=== PATIENT | male | born 2000 | race Caucasian/White ===

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

== ENCOUNTER → 2018-03-24 11:56 | Outpatient (CLI) | payer OTHER, SELFPAY ==
[2018-03-24 15:22] LABS: Absolute Lymphocyte Count 1.55 X10^3/ul (0.83-4.51); Absolute Neutrophil Count 2.9 X10^3/uL (2.0-7.7); Basophil# 0.05 X10^3/uL; Basophil% 0.9 % (0-1); Eosinophil# 0.11 X10^3/uL; Hematocrit 43.8 % (40-54); Hemoglobin 14.3 g/dl (13.0-16.5); Lymphocyte # 1.55 X10^3/ul (4.0); Lymphocyte % 28.9 % (19-41); Mean Corp Hgb Conc 32.6 g/gl (32-36); Mean Corpuscular Hgb 29.1 pg (27.0-32.0); Mean Platelet Vol. 9.1 fl (6.2-12.0); Monocyte# 0.72 X10^3/uL; Monocyte% 13.4 % (0-10); Neutrophil # 2.94 X10^3/uL (2.7-7.7); Neutrophil % 54.8 % (47-70); Platelet Count 282 K/mm3 (150-450); RBC Distribution Width CV 13.1 % (11.6-14.6); RBC Distribution Width SD 42.8 fl (35.1-43.9); Red Blood Count 4.92 M/mm3 (4.6-6.2); White Blood Count 5.4 K/mm3 (4.4-11.0)
[2018-03-24 15:23] LABS: POSITIVE COUNT NO; POSITIVE DIFFERENTIAL NO; POSITIVE MORPHOLOGY NO
[2018-03-24 15:40] LABS: Ferritin 9 ng/mL (26-388); Iron 135 ug/dL (65-175); Iron Binding Capacity,Total 357 ug/dL (250-450)
--- OUTSIDE RECORDS SUMMARY | 2018-06-26 02:10 | XMS RPT_ITS ---
:2000 Author Organization OHIP Care Team Providers Name Role Phone AGUILAR DEL TORO (FEL) Attending Unavailable SIMA ZAVALA Referring Unavailable Cameron, Iraj Attending Unavailable Cameron, Iraj Primary Care Unavailable Cameron, Iraj Attending Unavailable Barnes, Iraj Primary Care Unavailable Barnes, Iraj Attending Unavailable Iraj Barnes Primary Care Unavailable Cameron, Iraj Attending Unavailable BarnesIraj gavin Referring Unavailable Barnes, Iraj Primary Care Unavailable Barnes, Iraj Attending Unavailable Barnes, Iraj Primary Care Unavailable PROBLEMS PROBLEMS DATE TYPE CONDITION / CODE ATTENDING STATUS SOURCE 11/07/2017 Unknown D64.9 - Anemia, Iraj Barnes Active [facility] unspecified / Community D64.9(ICD-10) Hospital Repository 05/16/2017 Unknown R53.83 - Other Iraj Barnes Active [facility] fatigue / Community R53.83(ICD-10) Hospital Repository PROCEDURES PROCEDURES No Procedure Records FoundRESULTS RESULTS CBC W/DIFF, AUTOMATED Collected: 03/24/2018 Status: F Source: [place] 11:58 AM [facility] REPOSITORY TYPE CODE TESTS RESULT OUT OF RANGE REFERENCE UNITS LAB L100.1000 4.4-11.0 K/mm3 Normal WBC 5.4 LAB L100.1200 4.6-6.2 M/mm3 Normal RBC 4.92 LAB L100.1300 13.0-16.5 g/dl Normal HGB 14.3 LAB L100.1400 40-54 % Normal HCT 43.8 LAB L100.1500 80-94 fL Normal MCV 89.0 LAB L100.1600 27.0-32.0 pg Normal MCH 29.1 LAB L100.1700 32-36 g/gl Normal MCHC 32.6 LAB L100.1810 11.6-14.6 % Normal RDW CV 13.1 LAB L100.1820 35.1-43.9 fl Normal RDW SD 42.8 LAB L100.1900 150-450 K/mm3 Normal PLT 282 LAB L100.2000 6.2-12.0 fl Normal MPV 9.1 LAB L100.2100 47-70 % Normal NEUT% 54.8 LAB L100.2200 19-41 % Normal LY% 28.9 LAB L100.2300 0-10 % High MONO% 13.4 LAB L100.2400 0-5 % Normal EO% 2.0 LAB L100.2500 0-1 % Normal BASO% 0.9 LAB L100.2550 0.0-0.9 % Normal IM GRAN % 0.000 Result Comment: IG% - Immature Granulocytes (promyelocytes, myelocytes and metamyelocytes) > 1% indicates that a LEFT SHIFT is Present. LAB L100.2620 2.0-7.7 X10 3/uL Normal Absolute Neut 2.9 LAB L100.2720 0.83-4.51 X10 3/ul Normal Absolute Lymph 1.55 Performed By: #### L100.0100 #### [facility] [address] [place], [place], [address] IRON BINDING Collected: 03/24/2018 Status: F Source: [facility] 11[place] [facility] [place] TYPE CODE TESTS RESULT OUT OF RANGE REFERENCE UNITS LAB L503.6075 250-450 ug/dL Normal TIBC 357 Performed By: #### L503.6075, L503.6150, L503.6550 #### [facility] [address] [place], [address] IRON Collected: 03/24/2018 Status: F Source: [place] 11:58 [place] [facility] [place] TYPE CODE TESTS RESULT OUT OF RANGE REFERENCE UNITS LAB L503.6150 65-175 ug/dL Normal IRON 135 Performed By: #### L503.6075, L503.6150, L503.6550 #### [facility] [address] [place], [place], [address] FERRITIN Collected: 03/24/2018 Status: F Source: [place] 11:58 AM [facility] TYPE CODE TESTS RESULT OUT OF REFERENCE UNITS RANGE LAB L503.6550 26-388 ng/mL Low FERRITIN 9 Performed By: #### L503.6075, L503.6150, L503.6550 #### [facility] [address] [place], [place], [address] CBC W/DIFF, AUTOMATED Collected: 11/07/2017 Status: F Source: [place] 3:28 PM [facility] TYPE CODE TESTS RESULT OUT OF RANGE REFERENCE UNITS LAB L100.1000 4.4-11.0 K/mm3 Normal WBC 6.5 LAB L100.1200 4.6-6.2 M/mm3 Normal RBC 4.88 LAB L100.1300 13.0-16.5 g/dl Normal HGB 14.4 LAB L100.1400 40-54 % Normal HCT 43.6 LAB L100.1500 80-94 fL Normal MCV 89.3 LAB L100.1600 27.0-32.0 pg Normal MCH 29.5 LAB L100.1700 32-36 g/gl Normal MCHC 33.0 LAB L100.1810 11.6-14.6 % Normal RDW CV 12.7 LAB L100.1820 35.1-43.9 fl Normal RDW SD 40.9 LAB L100.1900 150-450 K/mm3 Normal PLT 237 LAB L100.2000 6.2-12.0 fl Normal MPV 9.2 LAB L100.2100 47-70 % Normal NEUT% 55.6 LAB L100.2200 19-41 % Normal LY% 29.4 LAB L100.2300 0-10 % High MONO% 11.6 LAB L100.2400 0-5 % Normal EO% 2.9 LAB L100.2500 0-1 % Normal BASO% 0.5 LAB L100.2550 0.0-0.9 % Normal IM GRAN % 0.000 Result Comment: IG% - Immature Granulocytes (promyelocytes, myelocytes and metamyelocytes) > 1% indicates that a LEFT SHIFT is Present. LAB L100.2620 2.0-7.7 X10 3/uL Normal Absolute Neut 3.6 LAB L100.2720 0.83-4.51 X10 3/ul Normal Absolute Lymph 1.92 Performed By: #### L100.0100 #### [facility] [address] [place], [address] IRON+IRON BINDING Collected: 11/07/2017 Status: F Source: [facility] 3:28 PM [facility] TYPE CODE TESTS RESULT OUT OF RANGE REFERENCE UNITS LAB L503.6075 250-450 ug/dL TIBC Normal 318 LAB L503.6150 65-175 ug/dL IRON Normal 127 LAB L503.6250 15.0-55.0 % IRON Normal SATURATION 39.9 Performed By: #### L503.6030, L503.6550 #### [facility] [address] [place], [address] FERRITIN Collected: 11/07/2017 Status: F Source: [place] 3:28 [facility] REPOSITORY TYPE CODE TESTS RESULT OUT OF REFERENCE UNITS RANGE LAB L503.6550 26-388 ng/mL Low FERRITIN 18 Performed By: #### L503.6030, L503.6550 #### [facility] [place], [address] PROGRESS Observed: 08/08/2017 Status: COMPLETED Source: [place] 1:32 PM [facility] REPOSITORY O ID: [id number] Author: Aguilar Del Toro (Ollie) Service: (none) Author Type: Resident Type: Progress Notes Filed: 08/13/2017 12:39 PM Note Text: CHILD AND ADOLESCENT PSYCHIATRY FOLLOW-UP VISIT CC STAFF: TEACHING PHYSICIAN NOTE OF PERSONAL INVOLVEMENT IN CARE I have met with this patient and guardian.The symptoms and needs of the patient were reviewed with the patient, guardian, and fellow. I have reviewed the progress note obtained and documented by the fellow and I personally was present and participated in the villa components. I have discussed the case and management of the patient's care with the fellow. The following comments revise or confirm relevant villa components of the fellow's note. IMPRESSION: This is a 17 y/o M with hx of MDD, currently in remission, stable on SSRI. He just finished his first year of college. His PCP recommended and he already decreased is Prozac to 40 mg every other day. He would like to stop his medication. We discussed decreasing to 20 mg daily x 1 month, then d/c. Since Dr. Del Toro is completing fellowship, Jaden would have to transfer to another resident in our clinic. He expressed that he would be interested in his PCP managing his care, and his PCP agreed. In meeting with the patient and guardian I have discussed; the patient's symptoms, reviewed history, obtained further collateral, discussed diagnosis, reviewed the family's involvement, reviewed the patients risk factors for self harm and harm to others, reviewed the patients environment, ways to modify the patient social environment, what actions the guardian(S) can take to help ensure a safe environment, medication changes, the patient's motivation for treatment, the need for medication, risks/benefits/alternatives to medical treatment, comorbidites and their impact on treatment, our plan of action, benchmarks for improvement, and overall goals of treatment. PLAN: The plan and recommendations are noted below in the fellow's note. The plan was developed with my direct input and supervision. Content in the note with which I do not agree has a strike through, and additions are in italics. Melvina Bettencourt MD Beeper Number: [id number] Authenticated by responsible provider. ASSESSMENT AND PLAN Jaden Muro is 17 year old male who presents for follow- up visit. At the last visit, on 05/22/2017, He was instructed to continue Prozac 40 mg daily. Today, we will plan to decrease Prozac to 20 mg daily for a month then discontinue it. We discussed following up with his primary care vs adult psychiatry here, he prefers seeing his pcp. Spoke to Dr Blas, pcp and he is agreeable to have Jaden follow up with him. Safety: - He has a chronic Low risk of harm to self/others. I reviewed safety and emergent precautions. - Were there any acute concerns for safety during today's evaluation? No Diagnoses: Problem List Items Addressed This Visit Psychiatry Major depressive disorder without psychotic features - Primary Overview Assessment: Reports remission of depression symptoms and suicidal thoughts since November, functioning well in college. C/o feeling tired and sleeping too much PLAN: - Decrease Prozac to 20 mg daily for 1 month, then discontinue - Patient to call and update me - Will contact PCP to discuss transfer of care as pt wants to follow up there, pt signed JAKE - Has Pulse oximetry to be done overnight next week, followed by a sleep study in a few weeks Coordination of care: - Will coordinate with outside providers. - Release of information signed today? Yes, signed release for his pcp Follow-up: - To follow up with pcp Dr Blas. Family was asked to call for an earlier visit if needed. SUBJECTIVE In regards to depression, symptoms are improving with No ongoing problems in this area. Treatment compliance is good. The patient is not seeing a therapist. Any collateral information collected outside this interview? Yes, spoke to his pcp and discussed plan to taper off Prozac, he is agreeable to have Jaden follow up with him Jaden reports doing well. He has not felt depressed since last year November, except few days in April after sudden of a friend. He enjoys things and looks forward to events. He denies having any suicidal thoughts. He is done with his first year of college today. 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 He does complain of sleeping too much almost 12-16 hours a day. He has a sleep study scheduled in a month's time. His brother has sleep apnea. He is not sure that this is a side effect of Prozac. He does want to discontinue it now since he has been doing so well, on his primary care physician's suggestion he has been taking 40 mg and 20 mg Prozac on alternate days. Sleep: The patient gets about 12 hours of sleep on school or work nights, also falls asleep for 3-4 hours in afternoon, experiences hypnopompic and hypnagogic hallucinations Appetite: good Stressors and/or changes to social history: No Medication reactions: possible Prozac is increasing tiredness Are there any new updates to patient's medical history? No MEDICAL REVIEW OF SYSTEMS: General: No recent weight loss, fever, chills, malaise or fatigue HEENT: Negative for frequent or significant headaches, No changes in hearing or vision, no nose bleeds or other nasal problems Endocrine: No history of thyroid disorder, diabetes, cold intolerance, heat intolerance, polydypsia Cardiovascular: No history of chest pain, palpitation, orthopnea, cyanosis, pedal edema Respiratory: No cough, hemoptysis, asthma, recent chest infection, wheezing Gastrointestinal: No blood in stool, pain with BM, tarry stool, persistent diarrhea or constipation Genitourinary: Negaive Hematological: negative Musculoskeletal: negative Neurological: No history of paralysis, stroke/TIA, seizures, tremors, syncope, or paresthesias. All other systems reviewed and negative. HISTORY Medications Outpatient medications: Current Outpatient Prescriptions on File Prior to Visit: FLUoxetine HCl (PROZAC) 40 mg capsule Take 1 capsule by mouth once daily. Has been taking 40 mg and 20 mg alternating daily on pcp's suggestion for 2 weeks No current facility-administered medications on file prior to visit. ALLERGIES Not on File Record Review Social History Narrative Attending college at [employer] Family history: Brother has depression and anxiety, has had severe side effects to effexor, Remeron and Xanax Sister had depression Paternal aunt had depression Medical CURRENT PCP: Sima Zavala ACTIVE PROBLEM LIST Major Depressive Disorder Without Psychotic Features - 05/30/2016 Comment: Assessment: Reports remission of depression symptoms and suicidal thoughts since November, functioning well in college. C/o feeling tired and sleeping too much PLAN: - Decrease Prozac to 20 mg daily for 1 month, then discontinue - Patient to call and update me - Will contact PCP to discuss transfer of care as pt wants to follow up there, pt signed JAKE - Has Pulse oximetry to be done overnight next week, followed by a sleep study in a few weeks PREVIOUS SURGERIES: No past surgical history on file. Family No family history on file. OBJECTIVE 08/08/17 1340 BP: 106/68 Pulse: 91 Weight: 63 kg (139 lb) Height: 190.5 cm (6' 3) Last 3 Encounter Wt Readings: Date: Wt: 02/21/2017 59.9 kg (132 lb) (19 %, Z= -0.89)* 10/25/2016 59.9 kg (132 lb) (21 %, Z= -0.82)* 08/09/2016 56.5 kg (124 lb 9.6 oz) (12 %, Z= -1.18)* Last 3 Encounter Ht Readings: Date: Ht: 02/21/2017 190.1 cm (6' 2.84) (97 %, Z= 1.93)* 10/25/2016 190.5 cm (6' 3) (98 %, Z= 2.01)* 05/30/2016 186.7 cm (6' 1.5) (93 %, Z= 1.50)* Body mass index is 17.37 kg/m?. PHYSICAL EXAM General / Constitutional: 17 year old year old man who is in no acute distress, well appearing, alert, well-hydrated, well nourished. Neurological: Gait is within normal limits with grossly normal strength and no abnormal movements. CN II-XII: grossly intact. MENTAL STATUS EXAMINATION: Appearance: 17 year old male, casually dressed and appears stated age. Behavior: The patient behaves appropriately during the encounter, pleasant and interactive, good eye contact. Speech/Language: The patient demonstrates appropriate tone, prosody, adelita, phonetics, and syntax. Mood: Described as good. Affect: The patient displays a full ranged, euthymic affect that is appropriate to the setting. Thought Content: The patient displays thought content appropriate to the interview. Thought Process: The thought process is linear and organized. Hallucinations: The patient does not appear internally stimulated, and denies auditory or visual hallucinations. Suicidal ideas/plans: The patient denies suicidal ideation, plan or intent at this time. Homicidal ideas/plan: The patient denies homicidal ideation, plan or intent at this time. Anxiety: The patient denies anxiety and does not appear anxious. Concentration: The patient demonstrates age appropriate attention throughout the interview. Judgment: The patient demonstrates age appropriate judgment. Insight: The patient demonstrates age appropriate insight. DATA REVIEWED: The laboratory results have been reviewed. Reviewed pertinent information from guardian report, EMR, and standardized scales through the [employer] (as applicable). TSH Date Value Ref Range Status 08/09/2016 0.855 0.400 - 5.500 uU/mL Final My Last OARRS Check for this patient OARRS REPORTING HISTORY There is no flowsheet data to display. Were there any pertinent findings since the last assessment? No Any EKG completed since the last visit? No Staffed by: Melvina Bettencourt MD Parent or guardian provided additional history. [facility] provider treatment records reviewed. Recent vitals and/or growth chart reviewed. SIGNATURE: Aguilar Del Toro MD DATE of SERVICE: August 08, 2017 TIME of SERVICE: 1:33 PM CBC W/DIFF, AUTOMATED Collected: 06/21/2017 Status: F Source: [place] 3:27 [place] [facility] [place] TYPE CODE TESTS RESULT OUT OF RANGE REFERENCE UNITS LAB L100.1000 4.4-11.0 K/mm3 Normal WBC 6.9 LAB L100.1200 4.6-6.2 M/mm3 Normal RBC 4.87 LAB L100.1300 13.0-16.5 g/dl Normal HGB 14.7 LAB L100.1400 40-54 % Normal HCT 43.7 LAB L100.1500 80-94 fL Normal MCV 89.7 LAB L100.1600 27.0-32.0 pg Normal MCH 30.2 LAB L100.1700 32-36 g/gl Normal MCHC 33.6 LAB L100.1810 11.6-14.6 % Normal RDW CV 13.1 LAB L100.1820 35.1-43.9 fl Normal RDW SD 42.6 LAB L100.1900 150-450 K/mm3 Normal PLT 288 LAB L100.2000 6.2-12.0 fl Normal MPV 9.5 LAB L100.2100 47-70 % Normal NEUT% 57.2 LAB L100.2200 19-41 % Normal LY% 26.4 LAB L100.2300 0-10 % High MONO% 13.5 LAB L100.2400 0-5 % Normal EO% 2.0 LAB L100.2500 0-1 % Normal BASO% 0.6 LAB L100.2550 0.0-0.9 % Normal IM GRAN % 0.300 Result Comment: IG% - Immature Granulocytes (promyelocytes, myelocytes and metamyelocytes) > 1% indicates that a LEFT SHIFT is Present. LAB L100.2620 2.0-7.7 X10 3/uL Normal Absolute Neut 4.0 LAB L100.2720 0.83-4.51 X10 3/ul Normal Absolute Lymph 1.82 Performed By: #### L100.0100 #### [facility] [address] [place], [address] IRON+IRON BINDING Collected: 06/21/2017 Status: F [facility] [place] [place] TYPE CODE TESTS RESULT OUT OF RANGE REFERENCE UNITS LAB L503.6075 250-450 ug/dL TIBC Normal 355 LAB L503.6150 65-175 ug/dL IRON Normal 93 LAB L503.6250 15.0-55.0 % IRON Normal SATURATION 26.2 Performed By: #### L503.6030, L503.6550 #### [facility] [address] [place], [address] FERRITIN Collected: 06/21/2017 Status: F Source: [place] 3:27 PM [facility] [place] [place] TYPE CODE TESTS RESULT OUT OF REFERENCE UNITS RANGE LAB L503.6550 26-388 ng/mL Low FERRITIN 11 Performed By: #### L503.6030, L503.6550 #### [facility] [address] [place], [address] CBC W/DIFF, AUTOMATED Collected: 05/16/2017 Status: F Source: [place] 2:02 PM [facility] [place] TYPE CODE TESTS RESULT OUT OF RANGE REFERENCE UNITS LAB L100.1000 4.4-11.0 K/mm3 Normal WBC 5.9 LAB L100.1200 4.6-6.2 M/mm3 Normal RBC 4.96 LAB L100.1300 13.0-16.5 g/dl Normal HGB 14.8 LAB L100.1400 40-54 % Normal HCT 44.9 LAB L100.1500 80-94 fL Normal MCV 90.5 LAB L100.1600 27.0-32.0 pg Normal MCH 29.8 LAB L100.1700 32-36 g/gl Normal MCHC 33.0 LAB L100.1810 11.6-14.6 % Normal RDW CV 13.4 LAB L100.1820 35.1-43.9 fl High RDW SD 44.2 LAB L100.1900 150-450 K/mm3 Normal PLT 280 LAB L100.2000 6.2-12.0 fl Normal MPV 9.5 LAB L100.2100 47-70 % Normal NEUT% 60.4 LAB L100.2200 19-41 % Normal LY% 22.7 LAB L100.2300 0-10 % High MONO% 14.2 LAB L100.2400 0-5 % Normal EO% 1.7 LAB L100.2500 0-1 % Normal BASO% 0.7 LAB L100.2550 0.0-0.9 % Normal IM GRAN % 0.300 Result Comment: IG% - Immature Granulocytes (promyelocytes, myelocytes and metamyelocytes) > 1% indicates that a LEFT SHIFT is Present. LAB L100.2620 2.0-7.7 X10 3/uL Normal Absolute Neut 3.6 LAB L100.2720 0.83-4.51 X10 3/ul Normal Absolute Lymph 1.34 Performed By: #### L100.0100 #### [facility] [address] [place], [place], [address] THYROID STIM HORMONE Collected: 05/16/2017 Status: F Source: [place] ([facility]) 2:02 PM [facility] [place] TYPE CODE TESTS RESULT OUT OF RANGE REFERENCE UNITS LAB L501.9520 0.358-3.74 uIU/mL Normal TSH 0.50 Performed By: #### L501.9520 #### [facility] [address] [place], [place], [address] TESTOSTERONE, SERUM TOTAL Collected: 05/16/2017 Status: F Source: [place] 2:02 PM [facility] [place] TYPE CODE TESTS RESULT OUT OF REFERENCE UNITS RANGE LAB L509.3000 ng/dL Testosterone Normal 964.18 Result Comment: NORMAL REFERENCE RANGES MALE AGE <50 123.06 - 813.86 ng/dL MALE AGE >50 89.98 - 780.10 ng/dL FEMALE PREMENOPAUSE AGE 21 - 60 9.01 - 47.94 ng/dL FEMALE POSTMENOPAUSE AGE 45 - 89 <7.00 - 45.62 ng/dL REFERENCE RANGE AND METHODOLOGY CHANGED 03/27/2017 Performed By: #### L509.3000 #### [facility] [address] [place], [place], [address] CHEST PA AND LATERAL Observed: 05/04/2017 Status: F Source: [place] 11:22 AM [facility] [place] [facility] [place] [address] Chest PA and Lateral MR#: [id number] Acct: [id number] Name: JADEN MURO Rep #: [id number] : 2000 M 16 From: Mame Moore MD PCP: Iraj Barnes MD Status: REG CLI Study: Chest PA and Lateral Date of Exam: 05/04/17 Exam# [id number] Ordering Dr: Iraj Barnes MD ADDENDUM by Mame Moore MD on 05/04/17 at 1146 RAD/Chest PA and Lateral 05/04/17 1153 Date cc: Iraj Barnes MD * Signed ADDENDUM by Mame Moore MD on 05/04/17 at 1146 ADDENDUM ADDENDUM: Hyperinflation can been seen normally in a young adult. Electronically Signed: aMme Moore MD at 11:46 EST , Service support , 05/04/17 1146 Date cc: Iraj Barnes MD * Signed STUDY: X-RAY CHEST REASON FOR EXAM: Male, 16 years old. History of hemoptysis TECHNIQUE: PA and lateral views of the chest. COMPARISON: None. FINDINGS: There is hyperinflation of the lungs consistent with chronic obstructive lung disease (COPD). There is no focal parenchymal abnormality. There is no demonstrated pleural abnormality. Normal size heart. Normal mediastinum and vita. Normal visualized pulmonary arteries. Normal visualized aortic arch and descending thoracic aorta. Normal visualized thoracic spine. Normal visualized ribs, clavicles, and shoulders. There is no demonstrated abnormality of the visualized soft tissue structures of the upper abdomen. RAD/Chest PA and Lateral IMPRESSION: COPD. No pulmonary edema, congestive heart failure or confluent pneumonia. The cavitary lesion detected. Electronically Signed: Mame Moore MD at 11:44 EST , Service support , CC: Iraj Banres MD Shake Backboard Notcher: Signed ALLERGIES ALLERGIES No Allergies Records FoundENCOUNTERS ENCOUNTERS ADMIT/DISCHARGE ACCOUNT ADMITTING ENCOUNTER LOCATION SOURCE NUMBER CLASS 03/24/2018 [id number] [facility] ing:MFPLAB Repository 11/07/2017 [id number] [facility] ing:MFPLAB Repository 08/08/2017/08/17/19 [id number] Ambulatory [address] Repository 06/21/2017 [id number] [facility] ing:MFPLAB Repository 05/16/2017 [id number] [facility] ing:MFPLAB Repository 05/04/2017 [id number] [facility] ing:RAD Repository PAYERS PAYERS ENCOUNTER GUARANTOR PAYER SUBSCRIBER SOURCE 03/24/2018 JADEN Primary MAI [id number] Insurance:Chao MORENO: [facility] Number: [id number] [id number] Repository [address]Lyg: 330) Date:[phone] () [id number] [place] [address]RZ: 03/24/2018 Secondary NOT GIVENUNK [place] Insurance:SELF PAY [facility] Number: Effective Repository Date:2018-03-24 11/07/2017 JADEN Primary MAI D [place] [id number] Insurance:AETNAPolicy MCCOURTDOB: Community [place] Number: [id number], [place] [id number] Repository [address]Yaj: (330) Date:5417-59-29[phone] (HP) [id number] [place] [address]UA: 11/07/2017 Secondary NOT GIVENUNK [place] Insurance:SELF PAY [facility] Number: Effective Repository Date:2017-11-07 06/21/2017 JADEN Primary MAI D [place] [id number] Insurance:AETNAPolicy MCCOURTDOB: [facility] Number: [id number], [place] [id number] Repository [address]Ufl: (330) Date:3875-71-29[phone] (HP) [id number] [place] [address]VD: 06/21/2017 Secondary NOT GIVENUNK [place] Insurance:SELF PAY [facility] Number: Effective Repository Date:2017-06-21 05/16/2017 JADEN Primary MAI D [place] [id number] Insurance:AETNAPolicy [facility]DOB[facility] Number: [id number], [place] [id number] Repository [address]Otn: (330) Date:5883-80-90[phone] (HP) [id number] [place] [address]XF: 05/16/2017 Secondary NOT GIVENUNK [place] Insurance:SELF PAY [facility] Number: Effective Repository Date:2017-05-16 05/04/2017 JADEN Primary MAI D [place] [id number] Insurance:AETNAPolicy MCCOURTDOB: Community [place] Number: [id number], [place] [id number] Repository [address]Hfj: 330) Date:5905-81-23[phone] () [id number] [place]TY B[place] [address]SF: 05/04/2017 Secondary NOT GIVENUNK [place] Insurance:SELF PAY [facility] Number: Effective Repository Date:2017-05-04
== END ==
PROVIDERS: Family Provider Family Medicine; PCP Family Medicine; Visit Provider Family Medicine
DX: D64.9 Anemia, unspecified (principal)
CPT/HCPCS: 36415; 82728; 83540; 83550; 85025

== ENCOUNTER 2021-06-13 15:21 | Outpatient (CLI) | payer BC, SELFPAY ==
[2021-06-13 18:00] LABS: Absolute Lymphocyte Count 2.03 X10^3/uL (0.83-4.51); Absolute Neutrophil Count 2.6 X10^3/uL (2.0-7.7); Basophil# 0.04 X10^3/uL; Basophil% 0.8 % (0-1); Eosinophil# 0.09 X10^3/uL; Eosinophils% 1.7 % (0-5); Hematocrit 42.9 % (40-54); Hemoglobin 14.5 g/dL (13.0-16.5); Lymphocyte # 2.03 X10^3/ul (0.83-4.51); Lymphocyte % 38.1 % (19-41); Mean Corp Hgb Conc 33.8 g/dL (32-36); Mean Corpuscular Hgb 29.5 pg (27.0-32.0); Mean Corpuscular Volume 87.4 fL (80-94); Mean Platelet Vol. 9.6 fl (6.2-12.0); Monocyte# 0.53 X10^3/uL; Monocyte% 9.9 % (0-10); NRBC Flagged by Analyzer 0 % (0-5); Neutrophil # 2.62 X10^3/uL (2.7-7.7); Neutrophil % 49.1 % (47-70); Platelet Count 191 K/mm3 (150-450); RBC Distribution Width SD 41.4 fl (35.1-43.9); Red Blood Count 4.91 M/mm3 (4.6-6.2); White Blood Count 5.3 K/mm3 (4.4-11.0)
[2021-06-13 18:16] LABS: ALB/GLOB Ratio 1.1 RATIO (0.9-2.4); AST(SGOT) 44 U/L (15-37); Alanine Aminotransfer ALT/SGPT 88 U/L (16-61); Albumin, Serum 3.9 g/dL (3.2-5.0); Alkaline Phosphatase 59 U/L (45-117); Anion Gap 4 (5-15); BUN 10 mg/dL (7-18); BUN/Creat Ratio 14.7 RATIO (10-20); Calcium,Total 8.8 mg/dL (8.5-10.1); Chloride 106 mmol/L (98-107); Creatinine, Serum 0.68 mg/dL (0.70-1.30); EST Glomerular Filtration Rate 154 mL/min (>60); Est Glom Filt Rate - Afr Amer 186 mL/min (>60); Globulin 3.6 g/dL (2.2-4.2); Glucose 107 mg/dL (74-106); Potassium 3.8 mmol/L (3.5-5.1); Protein, Total 7.5 g/dL (6.4-8.2); Sodium Level 138 mmol/L (136-145)
== END 2021-06-13 23:59 | disposition home or self-care (01) ==
LOC: MFPLAB 15:24
PROVIDERS: PCP Family Medicine; Referring Provider Family Medicine; Visit Provider Registered Nurse
DX: R42 Dizziness and giddiness (principal)
CPT/HCPCS: 36415; 80053; 85025

== ENCOUNTER 2021-06-21 07:42 | Outpatient (CLI) | payer BC, SELFPAY ==
--- NOTE | 2021-06-21 07:47 | US_ITS ---
INDICATION: elevated liver enzymes EXAMINATION: Ultrasound US Abdomen Limited (quadrant) TECHNIQUE: Baumann scale imaging with graded compression and color doppler was obtained of the right upper quadrant. COMPARISON: None. FINDINGS: Liver: Normal size measuring up to 15.8 cm. Normal echogenicity. Bile ducts are within normal limits. No masses identified. Gallbladder: Normal appearance with no significant wall thickening or pericholecystic fluid. Negative sonographic Yi sign. Common bile duct measures up to 4 mm and is within normal limits. Pancreas: The head, body, and visualized tail are unremarkable. Right kidney: 11.2 x 5.1 x 4.1 cm. Normal size. Normal appearance of the parenchyma. No cystic or solid masses. No hydronephrosis. No echogenic calculi. US/Abdomen Limited IMPRESSION: Normal right upper quadrant ultrasound. Electronically Signed: Jose Mcguire, at 12:05 EDT ,
== END 2021-06-21 23:59 | disposition home or self-care (01) ==
LOC: US 07:46
PROVIDERS: PCP Family Medicine; Referring Provider Registered Nurse; Visit Provider Registered Nurse
DX: R74.8 Abnormal levels of other serum enzymes (principal)
CPT/HCPCS: 76705

== ENCOUNTER 2021-07-06 15:23 | Outpatient (CLI) | payer BC, SELFPAY | END 2021-07-06 23:59 | disposition home or self-care (01) | PROVIDERS: PCP Family Medicine; Referring Provider Family Medicine; Visit Provider Family Medicine | DX: E72.12 Methylenetetrahydrofolate reductase deficiency (principal) ==

== ENCOUNTER → 2021-12-07 | Outpatient (CLI) | payer BC, SELFPAY ==
[2021-12-07 18:17] LABS: Anion Gap 6 (5-15); BUN 9 mg/dL (7-18); BUN/Creat Ratio 10.4 RATIO (10-20); Chloride 108 mmol/L (98-107); Creatinine, Serum 0.87 mg/dL (0.70-1.30); EST Glomerular Filtration Rate 116 mL/min (>60); Est Glom Filt Rate - Afr Amer 140 mL/min (>60); Glucose 102 mg/dL (74-106); Potassium 4.1 mmol/L (3.5-5.1); Sodium Level 140 mmol/L (136-145)
== END | disposition home or self-care (01) ==
LOC: MFPLAB 15:39
PROVIDERS: PCP Family Medicine; Visit Provider Family Medicine
DX: R63.1 Polydipsia (principal)
CPT/HCPCS: 36415; 80048

== ENCOUNTER → 2024-11-04 | Outpatient (CLI) | payer BC, SELFPAY ==
[2024-11-04 12:31] LABS: Hematocrit 42.2 % (40-54); Hemoglobin 14.7 g/dL (13.0-16.5); Immature Granulocytes Count 0.020 X10^3/uL (0.0-0.0); Mean Corp Hgb Conc 34.8 g/dL (32-36); Mean Corpuscular Volume 86.7 fL (80-94); Mean Platelet Vol. 9.7 fl (6.2-12.0); NRBC Flagged by Analyzer 0 % (0-5); Platelet Count 289 K/mm3 (150-450); RBC Distribution Width CV 12.0 % (11.6-14.6); RBC Distribution Width SD 38.4 fl (35.1-43.9); Red Blood Count 4.87 M/mm3 (4.6-6.2); White Blood Count 5.5 K/mm3 (4.4-11.0)
[2024-11-04 13:32] LABS: Anion Gap 14 (5-15); BUN 14 mg/dL (4-19); BUN/Creat Ratio 16.9 RATIO (10-20); Calcium,Total 9.8 mg/dL (7.6-11.0); Carbon Dioxide 21.4 mmol/L (21.0-32.0); Chloride 104 mmol/L (98-108); Glucose 89 mg/dL (70-99); Potassium 4.0 mmol/L (3.3-5.1)
--- OUTSIDE RECORDS SUMMARY | 2024-11-04 19:46 | XMS RPT_ITS | CCD ---
Author Organization [facility] Care Team Providers Care Program Project Manager Name Role Phone Michael Jimenez PA-C Unavailable [phone] CATALINA JONES Referring Unavailable CATALINA JONES Primary Care Unavailable CATALINA OJNES Admitting Unavailable Iraj Barnes Primary Care Unavailable Iraj Barnes Referring Unavailable Soo Cronin Attending Unavailable Soo Cronin Referring Unavailable Iraj Barnes Primary Care Unavailable Soo Cronin Attending Unavailable Iraj Barnes Primary Care Unavailable Iraj Barnes Attending Unavailable Iraj Barnes Referring Unavailable Cameron, Iraj Attending Unavailable Cameron, Iraj Primary Care Unavailable Allergies Allergy Classification Reported Allergen(s) Allergy Type Date of Onset Reaction(s) Facility (1 source) House dust mite; Translations: [DUST MITES] allergy to substance 0 [facility] Work Phone: (1 source) Kingdom Animalia; Translations: [ANIMALS] allergy to substance 0 [facility] Work Phone: (1 source) Mold Extract; Translations: [MOLD] Drug Allergy 0 [facility] Work Phone: (1 source) PLANT POLLENS; Translations: [PLANT POLLENS] allergy to substance 0 hay fever [facility] Work Phone: (1 source) WOOL; Translations: [WOOL] allergy to substance 0 [facility] Work Phone: Medications Completed/Discontinued Medications Medication Drug Class(es) Dates Sig (Normalized) Sig (Original) ergocalciferol 400 unt oral tablet (1 source) Provitamin D2 Compound Start: 08-28-2019 VITAMIN D (CHOLECALCIFEROL) 10 MCG (400 UNIT) TABS 4 tablets daily CHOLECALCIFEROL [id number] Aurora Franco RN 24 hr loratadine 10 mg / pseudoephedrine sulfate 240 mg extended release oral tablet (1 source) alpha-Adrenergic Agonist Start: 08-28-2019 LORATADINE-D 24HR 10-240 MG [id number] 1 tablet once daily LORATADINE-PSEUDOEPH EDRINE [id number] Aurora Franco RN Problems Active Problems Problem Classification Problem Date Documented Date Episodic/Chronic Other non-traumatic joint disorders (2 sources) Disorder of hip joint; Translations: [Other specified joint disorders, right hip] Onset: 08-21-1908-21-2019 Episodic Other nutritional; endocrine; and metabolic disorders (1 source) Methylenetetrahydrofolate reductase deficiency; 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 Other nutritional; endocrine; and metabolic disorders (1 source) Polydipsia; Translations: [Polydipsia] Onset: 12-19-19 Episodic Past or Other Problems Problem Classification Problem Date Documented Da te Episodic/Chronic Conditions associated with dizziness or vertigo (1 source) Dizziness and giddiness; Translations: [R42 - Dizziness and giddiness] Onset: 07-07-2021 Episodic Other liver diseases (1 source) Abnormal levels of other serum enzymes; Translations: [R74.8 - Abnormal levels of other serum enzymes] Onset: 06-29-2021 Episodic Unclassified (1 source) Problem Results Test Name Value Interpretation Reference Range Facility Basic Metabolic Profile (BMP )on 12-07-2021 BUN/CRE 10.4 RATIO Normal 01-25 [facility] Comment on above: Performed By: #### L 500.2500 #### [facility] [address] [place], [address] CA,Total 9.0 mg/dL Normal 8.5-10.1 [facility] Comment on above: Performed By: #### L 500.2500 #### [facility] [address] [place], [address] Chloride [Moles/Vol] 108 mmol/L High 98-107 [facility] Comment on above: Performed By: #### L 500.2500 #### [facility] [address] [place], [address] CO2 [Moles/Vol] 26.0 mmol/L Normal 21.0-32.0 [facility] Comment on above: Performed By: #### L 500.2500 #### [facility] [address] [place], [address] Creatinine [Mass/Vol] 0.87 mg/dL Normal 0.70-1.30 [facility] Comment on above: Result Comment: The validity of the calculated GFR GFRAA in patients over 70 years has not been determined. Clinical correlation is essential. Performed By: #### L 500.2500 #### [facility] [address] [place], [address] EST GFR - AA 140 mL/min Normal >60 [facility] Comment on above: Result Comment: Afri can Tristanian GFR Calc Performed By: #### L 500.2500 #### [facility] [address] [place], [address] GAP 6 Normal 5-15 [facility] Comment on above: Performed By: #### L 500.2500 #### [facility] [address] [place], [address] GFR/1.73 sq M.predicted among non-blacks MDRD (S/P/Bld) [Vol rate/Area] 116 mL/min/{1.73_m2} Normal >60 [facility] Comment on above: Result Comment: Non- GFR Calc Performed By: #### L 500.2500 #### [facility] [address] [place], [address] Glucose [Mass/Vol] 102 mg/dL Normal 74-106 [facility] Comment on above: Result Comment: Fast ing Glucose result from 100 to 125 mg/dL suggests IMPAIRED HOMEOSTASIS per A.D.A. criteria. Performed By: #### L 500.2500 #### [facility] [address] [place], [address] Potassium [Moles/Vol] 4.1 mmol/L Normal 3.5-5.1 [facility] Comment on above: Performed By: #### L 500.2500 #### [facility] [address] [place], [address] Sodium [Moles/Vol] 140 mmol/L Normal 136-145 [facility] Comment on above: Performed By: #### L 500.2500 #### [facility] [address] [place], [address] Urea nitrogen [Mass/Vol] 9 mg/dL Normal 7-18 [facility] Comment on above: Performed By: #### L 500.2500 #### [facility] [address] [place], [address] Basophil percentageon 2021 Chloride [Moles/Vol] 108 mmol/L 98-107 [facility] Work Phone: Glucose [Mass/Vol] 102 mg/dL 74-106 [facility] Work Phone: Comment on above: Fasting Glucose resu lt from 100 to 125 mg/dL suggests IMPAIRED HOMEOSTASIS per A.D.A. criteria. Potassium [Moles/Vol] 4.1 mmol/L 3.5-5.1 [facility] Work Phone: Sodium [Moles/Vol] 140 mmol/L 136-145 [facility] Work Phone: Laboratory - Chemistry and C hemistry - challengeon 12-07-2021 CO2 [Moles/Vol] 26.0 mmol/L 21.0-32.0 [facility] Work Phone: Urea nitrogen/Creatinine [Mass ratio] 10.4 mg/mg 10-20 [facility] Work Phone: No Panel Informationon 12-07 Estimated GFR (MDRD) Amer 140 mL/min >60 [facility] Work Phone: Comment on above: GFR Calc Estimated GFR (MDRD) Non-Af Amer 116 mL/min >60 [facility] Work Phone: Comment on above: Non- GFR Calc Serum or plasma calcium bony urement (mass/volume)on 12-07-2021 Calcium [Mass/Vol] 9.0 mg/dL 8.5-10.1 [facility] Work Phone: Serum or plasma creatinine m easurement (mass/volume)on 12-07-2021 Creatinine [Mass/Vol] 0.87 mg/dL 0.70-1.30 [facility] Work Phone: Comment on above: The validity of the calculated GFR & GFRAA in patients over 70 years has not been determined. Clinical correlation is essential. Serum or plasma urea nitroge n measurement (mass/volume)on 12-07-2021 Urea nitrogen [Mass/Vol] 9 mg/dL 7-18 [facility] Work Phone: Thin prep Papanicolaou smear with manual screeningon 12-07-2021 Thin prep Papanicolaou smear with manual screening 6 5-15 [facility] Work Phone: Miscellaneous Lab Procedureo n 07-12-2021 MISC LAB TEST Normal [facility] Comment on above: Order Comment: #[id number] HOMOCYSTEINE URINE 5ML RF #[id number] HOMOCYSTEINE URINE 5ML RF Result Comment: TEST RESULT LIMITS Homocysteine, Urine Homocysteine, Urine, 1.9 umol/L 0.4-13.0 Homocysteine-Norm 0.4 umol/mmol cr 0.1-0.8 Creatinine(Instructor Ballroom Dancing), U 0.58 g/L 0.30-3.00 TESTING PERFORMED AT [facility]. ORIGINAL REPORT ON FILE IN LAB CONTAINS ADDITIONAL TEST SITE INFORMATION. Performed By: #### L 801.1541 #### [facility] [address] [place], [address] No Panel Informationon 07-06 Miscellaneous Test See comment [facility] Work Phone: Comment on above: TEST RESULT LIMITSHo mocysteine, Urine Homocysteine, Urine, 1.9 umol/L 0.4-13.0 Homocysteine-Norm 0.4 umol/mmol cr 0.1-0.8 Creatinine(Instructor Ballroom Dancing), U 0.58 g/L 0.30-3.00 _ TESTING PERFORMED AT [facility]. ORIGINAL REPORT ON FILE IN LAB CONTAINS ADDITIONAL TEST SITE INFORMATION. ____ Abdomen Limitedon 06-21-2021 Abdomen Limited [facility] Imaging Services [address] [place] [address] Abdomen Limited MR#: [id number] Acct: [id number] Name: PANCHITO MURO Rep #: [id number] : 2000 M 20 From: Jose Mcguire DO PCP: Dr. Iraj Barnes MD Status: REG CLI Study: Abdomen Limited Date of Exam: 06/21/21 Exam# [id number] Ordering Dr: Soo Cronin NP [employer]MER-C INDICATION: elevated liver enzymes EXAMINATION: Ultrasound US Abdomen Limited (quadrant) TECHNIQUE: Baumann scale imaging with graded compression and color doppler was obtained of the right upper quadrant. COMPARISON: None. ____ FINDINGS: Liver: Normal size measuring up to 15.8 cm. Normal echogenicity. Bile ducts are within normal limits. No masses identified. Gallbladder: Normal appearance with no significant wall thickening or pericholecystic fluid. Negative sonographic Yi sign. Common bile duct measures up to 4 mm and is within normal limits. Pancreas: The head, body, and visualized tail are unremarkable. Right kidney: 11.2 x 5.1 x 4.1 cm. Normal size. Normal appearance of the parenchyma. No cystic or solid masses. No hydronephrosis. No echogenic calculi. US/Abdomen Limited IMPRESSION: Normal right upper quadrant ultrasound. Electronically Signed: Jose Mcguire, at 12:05 EDT Reading Location ID and State: [address] [place] [address] Tel , Service support , CC: DIANA Cronin; Dr. Iraj Barnes MD Agriculture Worker: Signed Normal [facility] Absolute lymphocyte counton 06-13-2021 Lymphocytes Auto (Unsp spec) [#/Vol] 2.03 10*3/uL 0.83-4.51 [facility] Work Phone: Automated blood hematocrit ( percentage)on 06-13-2021 Hematocrit (Bld) [Volume fraction] 42.9 % Normal 40-54 [facility] Work Phone: Comment on above: Order Comment: Order Date: 06/13/21 Order Info: 0184-1 - CBCD Comments: fatigue, vertigo, vomting fatigue, vertigo, vomiting Performed By: #### L 100.0100 #### [facility] [address] [place], [address] Basophil percentageon 2021 Basophils/100 WBC (Bld) 0.8 % Normal 0-1 [facility] Work Phone: Comment on above: Order Comment: Order Date: 06/13/21 Order Info: 0184-1 - CBCD Comments: fatigue, vertigo, vomting fatigue, vertigo, vomiting Performed By: #### L 100.0100 #### [facility] [address] [place], [place], [id number] Bilirubin [Mass/Vol] 0.50 mg/dL 0.20-1.00 [facility] Work Phone: Comment on above: For patients on eltr ombopag therapy, use of Dimension [place] TBIL is not recommended. Chloride [Moles/Vol] 106 mmol/L 98-107 [facility] Work Phone: Eosinophils/100 WBC (Bld) 1.7 % Normal 0-5 [facility] Work Phone: Comment on above: Order Comment: Order Date: 06/13/21 Order Info: [id number]- - CBCD Comments: fatigue, vertigo, vomting fatigue, vertigo, vomiting Performed By: #### L 100.0100 #### [facility] [address] [place], [place], [id number] Glucose [Mass/Vol] 107 mg/dL 74-106 [facility] Work Phone: Comment on above: Fasting Glucose resu lt from 100 to 125 mg/dL suggests IMPAIRED HOMEOSTASIS per A.D.A. criteria. Neutrophils (Bld) [#/Vol] 2.6 10*3/uL 2.0-7.7 [facility] Work Phone: Neutrophils/100 WBC (Bld) 49.1 % Normal 47-70 [facility] Work Phone: Comment on above: Order Comment: Order Date: 06/13/21 Order Info: 0184-1 - CBCD Comments: fatigue, vertigo, vomting fatigue, vertigo, vomiting Performed By: #### L 100.0100 #### [facility] [address] [place], [place], [id number] Potassium [Moles/Vol] 3.8 mmol/L 3.5-5.1 [facility] Work Phone: Protein [Mass/Vol] 7.5 g/dL 6.4-8.2 [facility] Work Phone: Sodium [Moles/Vol] 138 mmol/L 136-145 [facility] Work Phone: WBC (Bld) [#/Vol] 5.3 10*3/uL Normal 4.4-11.0 [facility] Work Phone: Comment on above: Order Comment: Order Date: 06/13/21 Order Info: 0184-1 - CBCD Comments: fatigue, vertigo, vomting fatigue, vertigo, vomiting Performed By: #### L 100.0100 #### [facility] [place], [place], [id number] Blood erythrocytes count (nu mber/volume)on 06-13-2021 RBC (Bld) [#/Vol] 4.91 10*6/uL Normal 4.6-6.2 [facility] Work Phone: Comment on above: Order Comment: Order Date: 06/13/21 Order Info: 0184-1 - CBCD Comments: fatigue, vertigo, vomting fatigue, vertigo, vomiting Performed By: #### L 100.0100 #### [facility] [address] [place], [place], [id number] [phone] Blood hemoglobin measurement (mass/volume)on 06-13-2021 Hemoglobin (Bld) [Mass/Vol] 14.5 g/dL Normal 13.0-16.5 [facility] Work Phone: Comment on above: Order Comment: Order Date: 06/13/21 Order Info: 0184-1 - CBCD Comments: fatigue, vertigo, vomting fatigue, vertigo, vomiting Performed By: #### L 100.0100 #### [facility] [address] [place], [place], [address] [phone] Blood lymphocytes/100 leukoc yteson 06-13-2021 Lymphocytes/100 WBC (Bld) 38.1 % Normal 19-41 [facility] Work Phone: Comment on above: Order Comment: Order Date: 06/13/21 Order Info: 0184-1 - CBCD Comments: fatigue, vertigo, vomting fatigue, vertigo, vomiting Performed By: #### L 100.0100 #### [facility] [address] [place], [place], [address] [phone] Blood monocytes/100 leukocyt eson 06-13-2021 Monocytes/100 WBC (Bld) 9.9 % Normal 0-10 [facility] Work Phone: Comment on above: Order Comment: Order Date: 06/13/21 Order Info: 0184-1 - CBCD Comments: fatigue, vertigo, vomting fatigue, vertigo, vomiting Performed By: #### L 100.0100 #### [facility] [address] [place], [place], [address] [phone] Blood platelet mean volumeon 06-13-2021 Platelet mean volume (Bld) [Entitic vol] 9.6 fL Normal 6.2-12.0 [facility] Work Phone: Comment on above: Order Comment: Order Date: 06/13/21 Order Info: 0184-1 - CBCD Comments: fatigue, vertigo, vomting fatigue, vertigo, vomiting Performed By: #### L 100.0100 #### [facility] [address] [place], [place], [address] CBC W/Diff, Automatedon - Absolute Lymph 2.03 X10 3/uL Normal 0.83-4.51 [facility] Comment on above: Order Comment: Order Date: 06/13/21 Order Info: 0184-1 - CBCD Comments: fatigue, vertigo, vomting fatigue, vertigo, vomiting Performed By: #### L 100.0100 #### [facility] [address] [place], [place], [id number] Absolute Neut 2.6 X10 3/uL Normal 2.0-7.7 [facility] Comment on above: Order Comment: Order Date: 06/13/21 Order Info: 0184-1 - CBCD Comments: fatigue, vertigo, vomting fatigue, vertigo, vomiting Performed By: #### L 100.0100 #### [facility] [address] [place], [address] IG% 0.400 Normal 0.0-0.9 [facility] Comment on above: Order Comment: Order Date: 06/13/21 Order Info: 0184-1 - CBCD Comments: fatigue, vertigo, vomting fatigue, vertigo, vomiting Result Comment: IG% - Immature Granulocytes (promyelocytes, myelocytes and metamyelocytes) > 1% indicates that a LEFT SHIFT is Present. Performed By: #### L 100.0100 #### [facility] [address] [place], [place], [id number] Nucleated RBC (Bld) [#/Vol] 0 10*3/uL Normal 0-5 [facility] Comment on above: Order Comment: Order Date: 06/13/21 Order Info: 0184-1 - CBCD Comments: fatigue, vertigo, vomting fatigue, vertigo, vomiting Performed By: #### L 100.0100 #### [facility] [address] [place], [address] RDW SD 41.4 fl Normal 35.1-43.9 [facility] Comment on above: Order Comment: Order Date: 06/13/21 Order Info: 0184-1 - CBCD Comments: fatigue, vertigo, vomting fatigue, vertigo, vomiting Performed By: #### L 100.0100 #### [facility] [address] [place], [place], [phone] Erythrocyte distribution width (RBC) [Ratio] 13.0 % Normal 11.6-14.6 [facility] Work Phone: Comment on above: Order Comment: Order Date: 06/13/21 Order Info: 0184-1 - CBCD Comments: fatigue, vertigo, vomting fatigue, vertigo, vomiting Performed By: #### L 100.0100 #### [facility] [address] [place], [place], [address] MCH (RBC) [Entitic mass] 29.5 pg Normal 27.0-32.0 [facility] Work Phone: Comment on above: Order Comment: Order Date: 06/13/21 Order Info: 0184-1 - CBCD Comments: fatigue, vertigo, vomting fatigue, vertigo, vomiting Performed By: #### L 100.0100 #### [facility] [address] [place], [place], [address] Comprehensive Metabolic Prof ilon 06-13-2021 Albumin [Mass/Vol] 3.9 g/dL Normal 3.2-5.0 [facility] Comment on above: Order Comment: Order Date: 06/13/21 Order Info: 0786-1 - CMP fatigue, vertigo, vomiting fatigue, vertigo, vomiting Performed By: #### L 500.4050 #### [facility] [address] [place], [place], [address] Albumin/Globulin [Mass ratio] 1.1 {ratio} Normal 0.9-2.4 [facility] Comment on above: Order Comment: Order Date: 06/13/21 Order Info: 0786-1 - CMP fatigue, vertigo, vomiting fatigue, vertigo, vomiting Performed By: #### L 500.4050 #### [facility] [address] [place], [address] ALK P 59 U/L Normal 45-117 [facility] Comment on above: Order Comment: Order Date: 06/13/21 Order Info: 0786-1 - CMP fatigue, vertigo, vomiting fatigue, vertigo, vomiting Performed By: #### L 500.4050 #### [facility] [address] [place], [id number] [phone] ALT [Catalytic activity/Vol] 88 U/L High 16-61 [facility] Comment on above: Order Comment: Order Date: 06/13/21 Order Info: 0786-1 - CMP fatigue, vertigo, vomiting fatigue, vertigo, vomiting Performed By: #### L 500.4050 #### [facility] [address] [place], [address] AST [Catalytic activity/Vol] 44 U/L High 15-37 [facility] Comment on above: Order Comment: Order Date: 06/13/21 Order Info: 0786-1 - CMP fatigue, vertigo, vomiting fatigue, vertigo, vomiting Performed By: #### L 500.4050 #### [facility] [address] [place], [address] Bilirubin [Mass/Vol] 0.50 mg/dL Normal 0.20-1.00 [facility] Comment on above: Order Comment: Order Date: 06/13/21 Order Info: 0786-1 - CMP fatigue, vertigo, vomiting fatigue, vertigo, vomiting Result Comment: For patients on eltrombopag therapy, use of Dimension [place] TBIL is not recommended. Performed By: #### L 500.4050 #### [facility] [address] [place], [address] BUN/CRE 14.7 RATIO Normal 10-20 [facility] Comment on above: Order Comment: Order Date: 06/13/21 Order Info: 0786-1 - CMP fatigue, vertigo, vomiting fatigue, vertigo, vomiting Performed By: #### L 500.4050 #### [facility] [address] [place], [address] CA,Total 8.8 mg/dL Normal 8.5-10.1 [facility] Comment on above: Order Comment: Order Date: 06/13/21 Order Info: 0786-1 - CMP fatigue, vertigo, vomiting fatigue, vertigo, vomiting Performed By: #### L 500.4050 #### [facility] [address] [place], [place], [id number] Chloride [Moles/Vol] 106 mmol/L Normal 98-107 [facility] Comment on above: Order Comment: Order Date: 06/13/21 Order Info: 0786-1 - CMP fatigue, vertigo, vomiting fatigue, vertigo, vomiting Performed By: #### L 500.4050 #### [facility] [address] [place], [place], [address] CO2 [Moles/Vol] 28.0 mmol/L Normal 21.0-32.0 [facility] Comment on above: Order Comment: Order Date: 06/13/21 Order Info: 0786-1 - CMP fatigue, vertigo, vomiting fatigue, vertigo, vomiting Performed By: #### L 500.4050 #### [facility] [address] [place], [place], [id number] Creatinine [Mass/Vol] 0.68 mg/dL Low 0.70-1.30 [facility] Comment on above: Order Comment: Order Date: 06/13/21 Order Info: 0786-1 - CMP fatigue, vertigo, vomiting fatigue, vertigo, vomiting Result Comment: The validity of the calculated GFR GFRAA in patients over 70 years has not been determined. Clinical correlation is essential. Performed By: #### L 500.4050 #### [facility] [address] [place], [place], [address] EST GFR - AA 186 mL/min Normal >60 [facility] Comment on above: Order Comment: Order Date: 06/13/21 Order Info: 0786-1 - CMP fatigue, vertigo, vomiting fatigue, vertigo, vomiting Result Comment: Afri can Tristanian GFR Calc Performed By: #### L 500.4050 #### [facility] [address] [place], [place], [id number] GAP 4 Low 5-15 [facility] Comment on above: Order Comment: Order Date: 06/13/21 Order Info: 0786-1 - CMP fatigue, vertigo, vomiting fatigue, vertigo, vomiting Performed By: #### L 500.4050 #### [facility] [address] [place], [place], [address] GFR/1.73 sq M.predicted among non-blacks MDRD (S/P/Bld) [Vol rate/Area] 154 mL/min/{1.73_m2} Normal >60 [facility] Comment on above: Order Comment: Order Date: 06/13/21 Order Info: 0786-1 - CMP fatigue, vertigo, vomiting fatigue, vertigo, vomiting Result Comment: Non- GFR Calc Performed By: #### L 500.4050 #### [facility] [address] [place], [place], [id number] Globulin (S) [Mass/Vol] 3.6 g/dL Normal 2.2-4.2 [facility] Comment on above: Order Comment: Order Date: 06/13/21 Order Info: 0786-1 - CMP fatigue, vertigo, vomiting fatigue, vertigo, vomiting Performed By: #### L 500.4050 #### [facility] [address] [place], [place], [id number] Glucose [Mass/Vol] 107 mg/dL High 74-106 [facility] Comment on above: Order Comment: Order Date: 06/13/21 Order Info: 0786-1 - CMP fatigue, vertigo, vomiting fatigue, vertigo, vomiting Result Comment: Fast ing Glucose result from 100 to 125 mg/dL suggests IMPAIRED HOMEOSTASIS per A.D.A. criteria. Performed By: #### L 500.4050 #### [facility] [address] [place], [place], [id number] Potassium [Moles/Vol] 3.8 mmol/L Normal 3.5-5.1 [facility] Comment on above: Order Comment: Order Date: 06/13/21 Order Info: 0786-1 - CMP fatigue, vertigo, vomiting fatigue, vertigo, vomiting Performed By: #### L 500.4050 #### [facility] [address] [place], [address] Sodium [Moles/Vol] 138 mmol/L Normal 136-145 [facility] Comment on above: Order Comment: Order Date: 06/13/21 Order Info: 0786-1 - CMP fatigue, vertigo, vomiting fatigue, vertigo, vomiting Performed By: #### L 500.4050 #### [facility] [address] [place], [address] T PROT 7.5 g/dL Normal 6.4-8.2 [facility] Comment on above: Order Comment: Order Date: 06/13/21 Order Info: 0786-1 - CMP fatigue, vertigo, vomiting fatigue, vertigo, vomiting Performed By: #### L 500.4050 #### [facility] [address] [place], [place], [address] Urea nitrogen [Mass/Vol] 10 mg/dL Normal 7-18 [facility] Comment on above: Order Comment: Order Date: 06/13/21 Order Info: 0786-1 - CMP fatigue, vertigo, vomiting fatigue, vertigo, vomiting Performed By: #### L 500.4050 #### [facility] [address] [place], [address] Determination of erythrocyte mean corpuscular volume (MCV)on 06-13-2021 MCV (RBC) [Entitic vol] 87.4 fL Normal 80-94 [facility] Work Phone: Comment on above: Order Comment: Order Date: 06/13/21 Order Info: [id number] - CBCD Comments: fatigue, vertigo, vomting fatigue, vertigo, vomiting Performed By: #### L 100.0100 #### [facility] [address] [place], [address] Laboratory - Chemistry and C hemistry - challengeon 06-13-2021 ALP [Catalytic activity/Vol] 59 U/L 45-117 [facility] Work Phone: ALT [Catalytic activity/Vol] 88 U/L 16-61 [facility] Work Phone: CO2 [Moles/Vol] 28.0 mmol/L 21.0-32.0 [facility] Work Phone: Globulin (S) [Mass/Vol] 3.6 g/dL 2.2-4.2 [facility] Work Phone: Urea nitrogen/Creatinine [Mass ratio] 14.7 mg/mg 10-20 [facility] Work Phone: Laboratory - Hematology and Cell countson 06-13-2021 Erythrocyte distribution width (RBC) [Entitic vol] 41.4 fL 35.1-43.9 [facility] Work Phone: Immature granulocytes/100 WBC (Bld) 0.400 % 0.0-0.9 [facility] Work Phone: Comment on above: IG% - Immature Granu locytes (promyelocytes, myelocytes and metamyelocytes) > 1% indicates that a LEFT SHIFT is Present. Nucleated RBC/100 WBC (Bld) [Ratio] 0 % 0-5 [facility] Work Phone: MCHC [Mass/volume] by Automa yisel counton 06-13-2021 MCHC (RBC) [Mass/Vol] 33.8 g/dL Normal 32-36 [facility] Work Phone: Comment on above: Order Comment: Order Date: 06/13/21 Order Info: [id number] - CBCD Comments: fatigue, vertigo, vomting fatigue, vertigo, vomiting Performed By: #### L 100.0100 #### [facility] [address] [place], [place], [address] No Panel Informationon 06-13 Estimated GFR (MDRD) Amer 186 mL/min >60 [facility] Work Phone: Comment on above: GFR Calc Estimated GFR (MDRD) Non-Af Amer 154 mL/min >60 [facility] Work Phone: Comment on above: Non- GFR Calc Platelets bldon 06-13-2021 Platelets (Bld) [#/Vol] 191 10*3/uL Normal 150-450 [facility] Work Phone: Comment on above: Order Comment: Order Date: 06/13/21 Order Info: [id number] - CBCD Comments: fatigue, vertigo, vomting fatigue, vertigo, vomiting Performed By: #### L 100.0100 #### [facility] [address] [place], [place], [id number] Serum or plasma albumin bony urement (mass/volume)on 06-13-2021 Albumin [Mass/Vol] 3.9 g/dL 3.2-5.0 [facility] Work Phone: Serum or plasma albumin/glob ulin mass ratioon 06-13-2021 Albumin/Globulin [Mass ratio] 1.1 {ratio} 0.9-2.4 [facility] Work Phone: Serum or plasma calcium bony urement (mass/volume)on 06-13-2021 Calcium [Mass/Vol] 8.8 mg/dL 8.5-10.1 [facility] Work Phone: Serum or plasma creatinine m easurement (mass/volume)on 06-13-2021 Creatinine [Mass/Vol] 0.68 mg/dL 0.70-1.30 [facility] Work Phone: Comment on above: The validity of the calculated GFR & GFRAA in patients over 70 years has not been determined. Clinical correlation is essential. Serum or plasma urea nitroge n measurement (mass/volume)on 06-13-2021 Urea nitrogen [Mass/Vol] 10 mg/dL 7-18 [facility] Work Phone: Thin prep Papanicolaou smear with manual screeningon 06-13-2021 Thin prep Papanicolaou smear with manual screening 44 U/L 15-37 [facility] Work Phone: Thin prep Papanicolaou smear with manual screening 4 5-15 [facility] Work Phone: Covid 19 Resultson 1 SARS-CoV-2 (COVID-19) RNA EMMY+probe Ql (Unsp spec) NEGATIVE COVID-19 Test Coronaviruses are common world-wide and are the cause of many common colds. SARS-COV2 is a new coronavirus that began circulating worldwide in 2019 so we are calling it COVID-19. It has been estimated that four out of five patients with COVID-19 will recover at home without the need for medical attention. Symptoms of COVID-19 may include cough, fever, shortness of breath, loss of taste or smell and other flu-like symptoms including chills, sore muscles, sore throat, and headache. Severe illness is more common in older people and people with other health problems such as high blood pressure, obesity, and immune system problems. If the test is positive, you have COVID-19. You will be contacted by the ordering physicians office and instructed to remain on home isolation, in accordance with CDC guidelines. You may also be contacted by the [facility] to see if any of your close contacts may have been exposed to the virus and need to quarantine. If the test is negative, you likely do not have COVID-19 at this time, but you still may have a different illness that can spread to other people (like Influenza, or the Flu) and could still be at risk for getting COVID-19. We recommend that you stay away from other people to limit the spread of illness until your symptoms are improving and you are fever-free for 24 hours without the use of fever lowering medications such as acetaminophen or ibuprofen. No test is 100% accurate so if you are still concerned you may have COVID-19, talk to your doctor about the need to continue to stay away from others. Medicines Unless your provider told you not to use the following: Acetaminophen (Tylenol and others) is generally safe. Anti-inflammatory medications, such as Ibuprofen (Advil or Motrin) or Naproxen (Aleve) can also be used. Invm-geo-twpfpkb cough and cold medicines can be used according to the instructions on the package. Some wrww-yjr-ccbukdr medicines also contain acetaminophen. Make sure you are not taking more than your recommended dose. For those not hospitalized, there is no specific treatment available for this illness. Antibiotics do not treat Coronaviruses. Follow-Up Follow up with your doctor by scheduling a virtual visit or consider follow-up at one of our urgent care fever clinics. If you are having difficulty breathing, or are very weak and having difficulty standing, this is a medical emergency. Call 911 or have someone take you to the nearest emergency room immediately. If possible, wear a facemask. Additional guidance from the CDC for patients who tested POSITIVE for COVID-19 How to isolate: Isolate yourself in a specific room at home and limit your contact with others. Use a separate bathroom from other members of the household, when possible. Leave home only to get essential medical care. Do not go to work, school or public areas. Avoid using public transportation, ride-sharing, or taxis. Restrict contact with pets and other animals. If you must care for your pet or be around animals while you are sick, wash your hands before and after your interaction and wear a facemask. Make sure that shared spaces in the home have good airflow, such as by an air conditioner or an opened window, weather permitting. Personal Hygiene Procedures: Wear a face mask when in the same room as other people or pets. If a face mask interferes with your breathing, others should wear a mask when sharing space with you. Frequent hand-washing: wash your hands with soap and water for at least 20 seconds. If soap and water are not available, use alcohol-based hand metal slitter. Avoid touching your eyes, nose, and mouth with unwashed hands. Household Hygiene Procedures: Avoid sharing personal household items such as dishes, glassware, cups, eating utensils, towels or bedding with other people or pets in your home. After use, these items should be washed with soap and hot water. Disinfect all high-touch surfaces every day with antibacterial cleaning solutions such as Lysol wipes, bleach, cleansers, etc. High-touch surfaces include tabletops, doorknobs, bathroom fixtures, toilets, phones, keyboards, tablets and bedside tables. Immediately clean any surfaces that may have blood, poop or body fluids on them, using antibacterial cleaning solutions such as Lysol wipes, bleach, cleansers, etc. If clothing or bedding come into contact with blood, poop or body fluids, they should be washed immediately. Follow the directions on the laundry detergent and clothing labels but hot water is recommended when possible. Stopping home isolation precautions: If possible, consult your doctor before stopping home isolation precautions. According to the CDC, you can discontinue home isolation precautions when you have met both of these criteria: Your fever and respiratory symptoms have been gone for 24 sierra (more content not included)... Normal [facility] INFLUENZA A/B, COVID 2019 PC R,SYMPTOMATICon 03-23-2021 INFLUENZA A, PCR Not detected Normal Not Detected [facility] Comment on above: Result Comment: Resp iratory virus testing is performed routinely by PCR for Influenza A/B and RSV. If Influenza and RSV PCR are negative, testing for parainfluenza 1,2,3 viruses and adenovirus is routinely performed for oncology inpatients and intensive care unit patients at [facility] and is available on request on other patients by calling Laboratory Client Services at [phone]. Not Detected results do not preclude Influenza A/B or RSV infections since the adequacy of sample collection or low viral burden may impact the clinical sensitivity of this test method. Performed By: #### C OINP #### [facility] [address] [place] [address] INFLUENZA B, PCR Not detected Normal Not Detected [facility] Comment on above: Result Comment: Resp iratory virus testing is performed routinely by PCR for Influenza A/B and RSV. If Influenza and RSV PCR are negative, testing for parainfluenza 1,2,3 viruses and adenovirus is routinely performed for oncology inpatients and intensive care unit patients at [facility] and is available on request on other patients by calling Laboratory Client Services at [phone] Not Detected results do not preclude Influenza A/B or RSV infections since the adequacy of sample collection or low viral burden may impact the clinical sensitivity of this test method. . The TaqManTM SARS-CoV-2, Flu A, Flu B Multiplex Assay is a multiplex, real-time RT-PCR assay for the detection of RNA from the SARS-CoV-2, Influenza A, and Influenza B viruses. A negative result does not preclude the possibility of SARS-CoV-2, Influenza A, or Influenza B infections, and should not be used as the sole basis for patient management decision as a negative result may be caused by very low levels of infection, collection errors, or testing errors. . This test was developed and its performance characteristics were determined by the Microbiology Laboratory, Department of Pathology, [facility], [place], [place]. It has not been cleared or approved by the US Food and Drug Administration; however, FDA clearance or approval is not currently required for clinical use. This test should not be regarded as investigational or for research purposes. Performed By: #### C OINP #### [address] [place] [address] SARS-CoV-2 (COVID-19) RNA EMMY+probe Ql (Unsp spec) Not detected Normal Not Detected [facility] Comment on above: Result Comment: . This assay is designed to detect the N, ORF1ab and/or S genes of SARS-CoV-2 via nucleic acid amplification. A Negative (NOT DETECTED) result does not preclude 2019-nCoV infection since the adequacy of sample collection and/or low viral burden may result in presence of viral nucleic acids below the clinical sensitivity of this test method. Negative (NOT DETECTED) result should not be used as the sole basis for treatment or other patient management decisions. Rather negative results should be combined with clinical observations, patient history, and epidemiological information to make patient management decisions. Fact sheet for providers: https://www.fda.gov/media/344494/download Fact sheet for patients: https://www.fda.gov/media/445471/download This test has received FDA Emergency Use Authorization (EUA) and has been verified by [facility] ([facility]). This test is only authorized for the duration of time that circumstances exist to justify the authorization of the emergency use of in vitro diagnostic tests for the detection of SARS-CoV-2 virus and/or diagnosis of COVID-19 infection under section 564(b)(1) of the Act, 21 U.S.C. 360bbb-3(b)(1), unless the authorization is terminated or revoked sooner. [facility] is certified under CLIA-88 as qualified to perform high complexity testing. Testing is performed in the [facility] laboratories located at [address] [place] [address]. Performed By: #### C OINP #### [facility] [address] [place] [address] INFLUENZA A/B, COVID 2019 PC R,SYMPTOMATICon 03-22-2021 DATE OF SYMPTOM ONSET [YYYYMMDD]? [id number] [facility] Comment on above: Performed By: #### C OINP #### [facility] [address] [place] [address] Lab Specimen Source Nasal, Nasopharyngeal Normal [facility] Comment on above: Performed By: #### C OINP #### [facility] [address] [place] [id number] CORONAVIRUS 2019 BY PCRon SARS-CoV-2 (COVID-19) RNA EMMY+probe Ql (Unsp spec) Not detected Normal Not Detected [facility] Comment on above: Result Comment: . This assay is designed to detect the N, ORF1ab and/or S genes of SARS-CoV-2 via nucleic acid amplification. A Negative (NOT DETECTED) result does not preclude 2019-nCoV infection since the adequacy of sample collection and/or low viral burden may result in presence of viral nucleic acids below the clinical sensitivity of this test method. Negative (NOT DETECTED) result should not be used as the sole basis for treatment or other patient management decisions. Rather negative results should be combined with clinical observations, patient history, and epidemiological information to make patient management decisions. Fact sheet for providers: https://www.fda.gov/media/573052/download Fact sheet for patients: https://www.fda.gov/media/088304/download This test has received FDA Emergency Use Authorization (EUA) and has been verified by [facility] ([facility]). This test is only authorized for the duration of time that circumstances exist to justify the authorization of the emergency use of in vitro diagnostic tests for the detection of SARS-CoV-2 virus and/or diagnosis of COVID-19 infection under section 564(b)(1) of the Act, 21 U.S.C. 360bbb-3(b)(1), unless the authorization is terminated or revoked sooner. [facility] is certified under CLIA-88 as qualified to perform high complexity testing. Testing is performed in the [facility] laboratories located at [address] [place] [address]. Performed By: #### C OV19 #### [place] [address] CORONAVIRUS 2019 BY PCRon DATE OF SYMPTOM ONSET [YYYYMMDD]? 02/21/2021 Normal [facility] Comment on above: Performed By: #### C OV19 #### [place] [address] Lab Specimen Source Nasal, Nasopharyngeal Normal [facility] Comment on above: Performed By: #### C OV19 #### [place] [address] CORONAVIRUS 2019 BY PCRon SARS-CoV-2 (COVID-19) RNA EMMY+probe Ql (Unsp spec) Not detected Normal Not Detected [facility] Comment on above: Result Comment: . This assay is designed to detect the N, ORF1ab and/or S genes of SARS-CoV-2 via nucleic acid amplification. A Negative (NOT DETECTED) result does not preclude 2019-nCoV infection since the adequacy of sample collection and/or low viral burden may result in presence of viral nucleic acids below the clinical sensitivity of this test method. Negative (NOT DETECTED) result should not be used as the sole basis for treatment or other patient management decisions. Rather negative results should be combined with clinical observations, patient history, and epidemiological information to make patient management decisions. Fact sheet for providers: https://www.fda.gov/media/718659/download Fact sheet for patients: https://www.fda.gov/media/732471/download This test has received FDA Emergency Use Authorization (EUA) and has been verified by [facility] ([facility]). This test is only authorized for the duration of time that circumstances exist to justify the authorization of the emergency use of in vitro diagnostic tests for the detection of SARS-CoV-2 virus and/or diagnosis of COVID-19 infection under section 564(b)(1) of the Act, 21 U.S.C. 360bbb-3(b)(1), unless the authorization is terminated or revoked sooner. [facility] is certified under CLIA-88 as qualified to perform high complexity testing. Testing is performed in the [facility] laboratories located at [address] [place] [address]. Performed By: #### C OV19 #### [facility] [address] [facility] [place] [address] Covid 19 Resultson 1 SARS-CoV-2 (COVID-19) RNA EMMY+probe Ql (Unsp spec) NEGATIVE COVID-19 Test Coronaviruses are common world-wide and are the cause of many common colds. SARS-COV2 is a new coronavirus that began circulating worldwide in 2019 so we are calling it COVID-19. It has been estimated that four out of five patients with COVID-19 will recover at home without the need for medical attention. Symptoms of COVID-19 may include cough, fever, shortness of breath, loss of taste or smell and other flu-like symptoms including chills, sore muscles, sore throat, and headache. Severe illness is more common in older people and people with other health problems such as high blood pressure, obesity, and immune system problems. If the test is positive, you have COVID-19. You will be contacted by the ordering physicians office and instructed to remain on home isolation, in accordance with CDC guidelines. You may also be contacted by the [facility] to see if any of your close contacts may have been exposed to the virus and need to quarantine. If the test is negative, you likely do not have COVID-19 at this time, but you still may have a different illness that can spread to other people (like Influenza, or the Flu) and could still be at risk for getting COVID-19. We recommend that you stay away from other people to limit the spread of illness until your symptoms are improving and you are fever-free for 24 hours without the use of fever lowering medications such as acetaminophen or ibuprofen. No test is 100% accurate so if you are still concerned you may have COVID-19, talk to your doctor about the need to continue to stay away from others. Medicines Unless your provider told you not to use the following: Acetaminophen (Tylenol and others) is generally safe. Anti-inflammatory medications, such as Ibuprofen (Advil or Motrin) or Naproxen (Aleve) can also be used. Fawf-hhg-xjgjgfj cough and cold medicines can be used according to the instructions on the package. Some dbdw-bxw-colhxam medicines also contain acetaminophen. Make sure you are not taking more than your recommended dose. For those not hospitalized, there is no specific treatment available for this illness. Antibiotics do not treat Coronaviruses. Follow-Up Follow up with your doctor by scheduling a virtual visit or consider follow-up at one of our urgent care fever clinics. If you are having difficulty breathing, or are very weak and having difficulty standing, this is a medical emergency. Call 911 or have someone take you to the nearest emergency room immediately. If possible, wear a facemask. Additional guidance from the CDC for patients who tested POSITIVE for COVID-19 How to isolate: Isolate yourself in a specific room at home and limit your contact with others. Use a separate bathroom from other members of the household, when possible. Leave home only to get essential medical care. Do not go to work, school or public areas. Avoid using public transportation, ride-sharing, or taxis. Restrict contact with pets and other animals. If you must care for your pet or be around animals while you are sick, wash your hands before and after your interaction and wear a facemask. Make sure that shared spaces in the home have good airflow, such as by an air conditioner or an opened window, weather permitting. Personal Hygiene Procedures: Wear a face mask when in the same room as other people or pets. If a face mask interferes with your breathing, others should wear a mask when sharing space with you. Frequent hand-washing: wash your hands with soap and water for at least 20 seconds. If soap and water are not available, use alcohol-based hand metal slitter. Avoid touching your eyes, nose, and mouth with unwashed hands. Household Hygiene Procedures: Avoid sharing personal household items such as dishes, glassware, cups, eating utensils, towels or bedding with other people or pets in your home. After use, these items should be washed with soap and hot water. Disinfect all high-touch surfaces every day with antibacterial cleaning solutions such as Lysol wipes, bleach, cleansers, etc. High-touch surfaces include tabletops, doorknobs, bathroom fixtures, toilets, phones, keyboards, tablets and bedside tables. Immediately clean any surfaces that may have blood, poop or body fluids on them, using antibacterial cleaning solutions such as Lysol wipes, bleach, cleansers, etc. If clothing or bedding come into contact with blood, poop or body fluids, they should be washed immediately. Follow the directions on the laundry detergent and clothing labels but hot water is recommended when possible. Stopping home isolation precautions: If possible, consult your doctor before stopping home isolation precautions. According to the CDC, you can discontinue home isolation precautions when you have met both of these criteria: Your fever and respiratory symptoms have been gone for 24 sierra (more content not included)... [facility] CORONAVIRUS 2019 BY PCRon DATE OF SYMPTOM ONSET [YYYYMMDD]? 01/24/2021 [facility] Comment on above: Performed By: #### C OV19 #### [facility] [address] [place] [address] Lab Specimen Source Nasal, Nasopharyngeal [facility] Comment on above: Performed By: #### C OV19 #### [facility] [address] [place] [address] COVID-19, MOLECULARon 2020 SARS-CoV-2 (COVID-19) RNA EMMY+probe Ql (Unsp spec) Not detected Normal Not Detected [facility] Comment on above: Result Comment: This test was performed under the FDA's Emergency Use Authorization (EUA). Testing was performed using the Trey SARS-CoV-2 RT-PCR assay on the [employer] Trey 6800 System. This test has not been approved for use in asymptomatic patients and its performance in this patient population has not been evaluated. Negative results do not rule out the presence of SARS-CoV-2/COVID-19. Fact sheets for this EUA can be found at the following links: For Healthcare Providers: https://www.fda.gov/media/103418/download For Patients: https://www.fda.gov/media/402333/download Performed By: #### L [id number] #### [facility] [address] [place] [address] Darci Trujillo M.D. [id number] Clinical Summary: HMSPatient IDon 10-16-2019 GO Fransisca masterson [facility] Work Phone: Office Visit: Follow-up by monique bah, Rm: 12on 10-16-2019 NEGATED: Highlighted rowxray history of the bilateral hips on 08/21/2019 at [facility] Work Phone: Vital Signs Date Time Vital Sign Value Performing Clinician Facility NEGATED: Highlighted [id number] 12:58-0400 BMI (Body Mass Index) 18.08 kg/m2 Kathrin Chato [employer] [facility] Work Phone: NEGATED: Highlighted [id number] 12:58-0400 Body weight 67.13 kg Kathrin Chato [employer] Work Phone: NEGATED: Highlighted [id number] 12:58-0400 Body weight 67 kg Kathrin Chato [employer] Work Phone: NEGATED: Highlighted [id number] 12:58-0400 Height 193.04 cm Kathrin Chato [employer] [facility] Work Phone: NEGATED: Highlighted [id number] 12:[id number] Height 193 cm Kathrin Chato [employer] Work Phone: Encounters Encounter Date Encounter Type Care Provider Facility Start: 12-07-2021 End: 12-07-2021 Patient encounter procedure [facility], [facility] Start: 12-07-2021 End: 12-07-2021 ambulatory Iraj Barnes [facility] Work Phone: Start: 07-06-2021 End: 07-07-2021 ambulatory Iraj Barnes Facility:[facility] Start: 07-06-2021 End: 07-06-2021 Patient encounter procedure [facility]-Laboratory, Specimen Start: 06-21-2021 End: 06-22-2021 ambulatory Soo Cronin Facility:[facility] Start: 06-21-2021 End: 06-21-2021 Patient encounter procedure [facility]Ultrasound, [facility] Start: 06-13-2021 End: 06-14-2021 ambulatory Iraj Barnes Facility:[facility] Start: 06-13-2021 End: 06-13-2021 Patient encounter procedure [facility], [facility] Start: 12-14-2020 End: 12-14-2020 ambulatory CATALINA JONES [facility] Start: 10-16-2019 End: 10-16-2019 Patient encounter procedure Michael Jimenez PA-C Work Phone: [facility] Work Phone: Procedures Date Procedure Procedure Detail Performing Clinician Start: 06-21-2021 Ultrasonography of abdomen Start: 10-16-2019 End: 10-16-2019 Blood pressure screening not performed - reason not given Michael Jimenez PA-C Work Phone: Start: 10-16-2019 End: 10-16-2019 BMI outside of normal parameters - no follow-up plan/reason not given Michael Jimenez PA-C Work Phone: Start: 10-16-2019 End: 10-16-2019 Documentation of current medications Michael Jimenez PA-C Work Phone: Start: 10-16-2019 End: 10-16-2019 Pain assessment documented as positive - follow-up documented Michael Jimenez PA-C Work Phone: Start: 10-16-2019 End: 10-16-2019 Tobacco non-user Michael Jimenez PA-C Work Phone: NEGATED: Highlighted rowStart: 10-16-2019 End: 10-16-2019 Documentation of current medications Kathrin Reis LPN Plan of Treatment Date Care Activity Detail Author Start: 10-16-2019 End: 10-16-2019 Appointment Appointment [facility] paedic [facility] Work Phone: Payers Date Payer Category Payer Unknown [id number] 2021 Self-pay [id number] 2021 Unknown [id number] Private Health Insurance [id number] Unknown [id number] [id number] [id number] Unknown [id number] [id number] Unknown [id number] [id number] [id number] Unknown [id number] [id number] Social History Date Type Detail Facility Start: 10-16-2019 End: 10-16-2019 Assertion Unknown if ever smoked [facility] Work Phone: Start: 2000 Sex Assigned At Male [facility] Work Phone: Evaluation note Note Date & Type Note Facility Evaluation note No assessment information availa [facility] Work Phone: Chief Complaint Chief Complaint Description Start Date bilateral hip pain Preliminary chief co mplaint data, not yet signed by the author as of Instructions Instruction Description Start Date Completed Advance Directives There may be information available, but it has not been provided by the sender. No Advanced Directives Records FoundNo Advanced Directives Records FoundNo Advanced Directives Records FoundNo Advanced Directives Records Found Assessments There may be information available, but it has not been provided by the sender. Review of System There may be information available, but it has not been provided by the sender. Family History There may be information available, but it has not been provided by the sender.No Family History Records FoundNo Family History Records FoundNo Family History Records FoundNo Family History Records Found History of Present Illness There may be information available, but it has not been provided by the sender. Summary Purpose Chief Complaint and Reason for Visit Chief Complaint ELEVATED LIVER ENZYM ES Additional Source Comments Reason for Visit (unrecogniz ed section and content) Reason For Visit Description Follow-up by complaint Preliminary reason f or visit data, not yet signed by the author as of bilateral hip pain (unrecognized sect ion and content) No Status Records FoundNo Status Records FoundNo Status Records FoundNo Status Records Found INFORMATION SOURCE (unrecogn ized section and content) DATE CREATED AUTHOR 12/16/2020 [facility] DATE CREATED AUTHOR AUTHOR'S ORGANIZ ATION 02/24/2021 [facility] DATE CREATED AUTHOR AUTHOR'S ORGANIZ ATION 03/26/2021 [facility] DATE CREATED AUTHOR AUTHOR'S ORGANIZ ATION 12/18/2021 [facility] Goals (unrecognized section and content) Goals may be documented in a n alternate sectionGoals may be documented in an alternate sectionGoals may be documented in an alternate section FOR RECORDS PERTAINING TO PATIENTS WHO ARE OR HAVE BEEN ENROLLED IN A CHEMICAL DEPENDENCY/SUBSTANCEABUSE PROGRAM, SOME INFORMATION MAY BE OMITTED. This clinical summary was aggregated from multiple sources. Caution should be exercised in using it in the provision of clinical care. This summary normalizes information from multiple sources, and as a consequence, information in this document may materially change the coding, format and clinical context of patient data. In addition, data may be omitted in some cases. CLINICAL DECISIONS SHOULD BE BASED ON THE PRIMARY CLINICAL RECORDS. [facility]. provides no warranty or guarantee of the accuracy or completeness of information in this document.
== END | disposition home or self-care (01) ==
LOC: MFPLAB 10:34
PROVIDERS: PCP Family Medicine; Referring Provider Family Medicine; Visit Provider Family Medicine
DX: R53.83 Other fatigue (principal)
CPT/HCPCS: 36415; 80048; 84403; 84443; 85025

== ENCOUNTER → 2025-02-03 | Outpatient (CLI) | payer BC, SELFPAY ==
[2025-02-03 14:36] LABS: AST(SGOT) 16 U/L (<=37); Alanine Aminotransfer ALT/SGPT 24 U/L (<=46); Albumin, Serum 4.8 g/dL (3.5-5.0); Alkaline Phosphatase 65 U/L (40-129); Anion Gap 13 (5-15); BUN 16 mg/dL (4-19); BUN/Creat Ratio 21.9 RATIO (10-20); Calcium,Total 9.2 mg/dL (7.6-11.0); Carbon Dioxide 22.9 mmol/L (21.0-32.0); Chloride 102 mmol/L (98-108); Globulin 2.7 g/dL (2.2-4.2); Glucose 81 mg/dL (70-99); Potassium 4.0 mmol/L (3.3-5.1)
== END | disposition home or self-care (01) ==
LOC: MFPLAB 09:46
PROVIDERS: PCP Family Medicine; Visit Provider Family Medicine
DX: R74.8 Abnormal levels of other serum enzymes (principal)
CPT/HCPCS: 36415; 80053